=== PATIENT | female | born 2000 | race Caucasian/White ===

== ENCOUNTER 2020-12-28 05:46 | Inpatient (IN) | payer BC ==
[2020-12-28] MEDS ORDERED: AMPICILLIN 2,000 MG in SODIUM CHLORIDE 0.9% 100 ML IVPB ONE (06:00)
[2020-12-28] MEDS ORDERED: METHYLERGONOVINE 0.2 MG/ML 1 ML AMP IM PRN (06:01)
[2020-12-28] MEDS ORDERED: TERBUTALINE 1 MG/ML VIAL SQ PRN (06:01)
[2020-12-28] MEDS ORDERED: OXYTOCIN 10 UNIT/ML 1 ML VIAL IM PRN (06:01)
[2020-12-28] MEDS ORDERED: CARBOPROST TROMETHAMINE 250 MCG/ML 1 ML AMP IM PRN (06:01)
[2020-12-28] MEDS ORDERED: LIDOCAINE 0.5% (PF) 5 MG/ML (50 ML SDV) SQ PRN (06:01)
[2020-12-28] MEDS ORDERED: OXYTOCIN 30 UNITS/500 ML NS 30 UNIT in SALINE 1 500ML.BAG IV SCH (06:15)
[2020-12-28 06:17] LABS: Basophils # (A) 0.1 k/uL (0-0.2); Basophils % (A) 1 %; Eosinophils # (A) 0.2 k/uL (0-0.7); Eosinophils % (A) 1 %; HCT 37.2 % (34.0-46.0); HGB 12.2 gm/dL (11.4-16.0); Lymphocytes # (A) 2.4 k/uL (1.0-4.8); Lymphocytes % (A) 22 %; MCH 27.2 pg (25.0-35.0); MCHC 32.8 g/dL (31.0-37.0); MCV 82.8 fL (80.0-100.0); Mean Platelet Volume 10.5; Monocytes # (A) 0.6 k/uL (0-1.0); Monocytes % (A) 6 %; Neutrophils # (A) 7.5 k/uL (1.3-7.7); Neutrophils % (A) 68 %; Platelet Count 238 k/uL (150-450); Poikilocytosis Slight; RBC 4.49 m/uL (3.80-5.40); RDW 14.3 % (11.5-15.5)
[2020-12-28] MEDS: LACTATED RINGERS 1,000 ML IV SCH ×3 (06:19→21:46)
--- NOTE | 2020-12-28 08:17 | P.HPOB ---
History of Present Illness H&P Date: 12/28/20 Chief Complaint: Induction of labor This is a 20-year-old female 2 para 0 with an estimated date of confinement of 12/31/2020, estimated gestational age of 39-4/7 weeks, who presents to labor and delivery for induction of labor. She has been feeling frequent contractions and pressure. course was essentially uncomplicated. labs: Hepatitis B surface antigen-negative RPR-nonreactive Rubella-nonimmune Blood type-A+ Antibody screen-negative Hemoglobin-13.3 Random glucose-82 Group B streptococcus-positive One hour Glucola-125 Obstetrical history: . History of 1 miscarriage. Gynecologic history: No history of sexual transmitted diseases. Social history: She is single. She works at [employer] in [employer] Review of Systems Constitutional: Denies chills, Denies fever Eyes: denies blurred vision, denies pain Ears, nose, mouth and throat: Denies headache, Denies sore throat Cardiovascular: Denies chest pain, Denies shortness of breath Respiratory: Denies cough Gastrointestinal: Reports abdominal pain (Contractions) Genitourinary: Reports pelvic pain, Reports Musculoskeletal: Reports low back pain Integumentary: Denies pruritus, Denies rash Neurological: Denies numbness, Denies weakness Psychiatric: Denies anxiety, Denies depression Past Medical History Past Medical History: No Reported History History of Any Multi-Drug Resistant Organisms: None Reported Past Surgical History: No Surgical Hx Reported Past Anesthesia/Blood Transfusion Reactions: No Reported Reaction Past Psychological History: No Psychological Hx Reported Smoking Status: Never smoker Past Alcohol Use History: None Reported Past Drug Use History: None Reported - Past Family History Mother Family Medical History: No Reported History Medications and Allergies Home Medications Medication Instructions Recorded Confirmed Type Pnv,Calcium 72/Iron/Folic Acid 1 tab PO DAILY 12/28/20 12/28/20 History [ Plus Tablet] Allergies Allergy/AdvReac Type Severity Reaction Status Date / Time No Known Allergies Allergy Verified 12/28/20 06:00 Exam Osteopathic Statement: *. No significant issues noted on an osteopathic structural exam other than those noted in the History and Physical/Consult. Vital Signs Temp Pulse Resp BP Pulse Ox 12/28/20 08:03 97.3 F L 106 H 18 133/89 98 Intake and Output 12/27/20 12/28/20 12/28/20 22:59 06:59 14:59 Other: # Voids 1 Weight 82.1 kg 82.1 kg HEENT: Within normal limits Heart: Regular rate and rhythm Lungs: Clear to auscultation bilaterally Abdomen: Cervix: 2 cm/70%/-2 station heart tones: Reactive, category 1 Contractions: Irregular Extremities: Negative Homans Results Result Diagrams: 12/28/20 06:05 Abnormal Lab Results - Last 24 Hours (Table) 12/28/20 Range/Units 06:05 WBC 11.0 H (3.8-10.6) k/uL Assessment and Plan (1) 39 weeks gestation of Current Visit: Yes Status: Acute Code(s): Z3A.39 - 39 WEEKS GESTATION OF SNOMED Code(s): 85083820 (2) Group B Streptococcus carrier, +RV culture, currently Current Visit: Yes Status: Acute Code(s): O99.820 - STREPTOCOCCUS B CARRIER STATE COMPLICATING SNOMED Code(s): 7069551905881 Plan: Admission for induction of labor. Antibiotic prophylaxis for group B streptococcus. Expectant management.
[2020-12-28 09:25] LABS: ALT 9 U/L (4-34); AST 24 U/L (14-36); African American GFR (CKD) >90 (>60 ml/min/1.73 sqM); Blood Urea Nitrogen 8 mg/dL (7-17); LDH 463 U/L (313-618); Non-African American GFR(CKD) >90 (>60 ml/min/1.73 sqM); Uric Acid 5.4 mg/dL (3.7-7.4)
[2020-12-28 09:30] LABS: Appearance,Urine Clear (Clear); Bilirubin,Urine Negative (Negative); Blood,Urine Negative (Negative); Color,Urine Light Yellow; Glucose,Urine (UA) Negative (Negative); Ketones,Urine Negative (Negative); Leukocyte Esterase,Urine Negative (Negative); Nitrite,Urine Negative (Negative); PH, Urine 6.5 (5.0-8.0); Protein,Urine Negative (Negative); Specific Gravity,Urine 1.008 (1.001-1.035); Urobilinogen,Urine <2.0 mg/dL (<2.0)
[2020-12-28 09:39] LABS: Creatinine,Urine Random 40.6 mg/dL; Protein/Creatinine Ratio,Urine 0.222
[2020-12-28] MEDS: AMPICILLIN 1,000 MG in SODIUM CHLORIDE 0.9% 50 ML IVPB SCH ×4 (10:45→22:48)
[2020-12-28] MEDS: BUTORPHANOL 1 MG/ML 1 ML VIAL IV PRN ×2 (18:10→20:36)
--- NOTE | 2020-12-29 00:42 | P.PROBDLV ---
Vaginal Delivery Note - . Vaginal Delivery Note: The patient progressed to complete dilation after oxytocin induction of labor and artificial rupture membranes with clear fluid noted. She did receive multiple doses of ampicillin during labor due to positive group B streptococcus. She also did receive 2 doses of Stadol while in labor. Once reaching complete, she began pushing. 's head came to a crown. At this time heart tones were noted to be in the 50s and therefore a midline episiotomy was cut. With o ne further push, the 's head delivered across the perineum followed by the anterior shoulder. Nose and mouth were bulb suctioned at the perineum. Nuchal cord times one was reduced around the body with one remaining push and the remainder the infant easily delivered reducing the cord around the . A viable female infant was then placed on mother's abdomen and cord was clamped and cut. Infant was taken to warmer for evaluation. A viable female is noted with scores of 9 at 1 minute and 9 at 5 minutes and weight of 7 lbs. 11 oz. Placenta delivered shortly thereafter, intact, with a three- vessel cord. Uterus contracted fairly well after oxytocin was given and uterine massage was carried out. Inspection of the perineum revealed a midline episiotomy and a left periurethral laceration. These areas were anesthetized with 1% lidocaine. The left periurethral laceration is closed with 3-0 Vicryl suture in a running locked fashion. The midline episiotomy is then sutured with 30 and 2-0 Vicryl suture in the usual multilayer fashion. Several clots and one small piece of membranous tissue was removed from the endometrial cavity with a gloved hand. Uterus did contract well after this. Estimated blood loss is approximately 300 mL's. Both mother and are in stable condition.
[2020-12-29] MEDS ORDERED: diphenhydrAMINE 50 MG/ML 1 ML VIAL IVP PRN ×2 (01:26)
[2020-12-29] MEDS ORDERED: ZOLPIDEM 5 MG TAB PO PRN (01:26)
[2020-12-29] MEDS ORDERED: LANOLIN CREAM 5 GM TUBE TOPICAL PRN (01:26)
[2020-12-29] MEDS ORDERED: HYDROCORTISONE 2.5% RECTAL CREAM 30 GM TUBE RECTAL PRN (01:26)
[2020-12-29] MEDS ORDERED: ACETAMINOPHEN TAB 325 MG TAB PO PRN (01:26)
[2020-12-29] MEDS ORDERED: OXYTOCIN 30 UNITS/500 ML NS 30 UNIT in SALINE 1 500ML.BAG IV SCH (01:26)
[2020-12-29] MEDS ORDERED: BENZOCAINE/MENTHOL SPRAY 1 GM/SPRAY AEROSOL TOPICAL PRN (01:26)
[2020-12-29] MEDS ORDERED: diphenhydrAMINE 50 MG CAP PO PRN (01:26)
[2020-12-29] MEDS ORDERED: MEASLES-MUMPS-RUBELLA VACC/PF 12,500 UNIT/0.5 ML VIAL SQ ONE (01:26)
[2020-12-29] MEDS ORDERED: SIMETHICONE 80 MG CHEWABLE PO PRN (01:26)
[2020-12-29] MEDS ORDERED: diphenhydrAMINE 25 MG CAP PO PRN (01:26)
[2020-12-29] MEDS: IBUPROFEN 600 MG TAB PO PRN ×3 (01:44→16:36)
[2020-12-29] MEDS: SENNOSIDES-DOCUSATE SODIUM 1 EACH TAB PO SCH ×3 (01:50→19:52)
[2020-12-29] MEDS: PRENATAL VIT-IRON-FOLIC ACID 1 EACH CAP PO SCH ×2 (01:50→08:44)
[2020-12-29 06:52] LABS: Basophils % (A) 0 %; Eosinophils % (A) 0 %; HCT 29.9 % (34.0-46.0); HGB 10.3 gm/dL (11.4-16.0); Lymphocytes # (A) 1.2 k/uL (1.0-4.8); Lymphocytes % (A) 7 %; MCH 27.5 pg (25.0-35.0); MCHC 34.5 g/dL (31.0-37.0); MCV 79.7 fL (80.0-100.0); Mean Platelet Volume 11.5; Monocytes % (A) 5 %; Neutrophils % (A) 87 %; Platelet Count 250 k/uL (150-450); Poikilocytosis Moderate; RBC 3.76 m/uL (3.80-5.40); RDW 14.7 % (11.5-15.5); WBC 18.4 k/uL (3.8-10.6)
[2020-12-29 10:01] LABS: Large Platelets Present
[2020-12-29 16:49] VITALS: RESP 16
[2020-12-30] MEDS: IBUPROFEN 600 MG TAB PO PRN (08:37)
[2020-12-30] MEDS: SENNOSIDES-DOCUSATE SODIUM 1 EACH TAB PO SCH (08:38)
[2020-12-30 08:43] VITALS: BP 124/79; PULSE 114; TEMP 98.4
--- NOTE | 2020-12-30 10:19 | P.DS ---
Providers Date of admission: 12/28/20 05:46 Expected date of discharge: 12/30/20 Attending physician: Yun Gomez Primary care physician: Stated None - Discharge Diagnosis(es) (1) 39 weeks gestation of Current Visit: Yes Status: Acute (2) Group B Streptococcus carrier, +RV culture, currently Current Visit: Yes Status: Acute Hospital Course: This is a 20 y.o. female who presented for induction of labor at 39-4/7 weeks. She delivered vaginally a viable female infant with scores of 9 at 1 minute and 9 at 5 minutes on 12/29/2020. course has been essentially uncomplicated. She does have some soreness around her stitches. Bleeding is slowing. Pain is fairly well controlled. Vital signs are stable. Abdomen is soft, non-tender with fundus firm and non-tender. Extremities show negative Jacqueline's. Perineal area is intact. Impression is status post vaginal delivery day #1. Plan is to discharge home today. Follow up in office in 6 weeks. Will give prescription for ibuprofen. Bottle feeding. Instructions given. Advised to call the office with any questions or concerns prior to her appointment time. Procedures: Oxytocin induction of labor Spontaneous vaginal delivery of viable female infant on 12/29/2020 Patient Condition at Discharge: Stable Plan - Discharge Summary New Discharge Prescriptions: New Ibuprofen [Motrin] 600 mg PO Q6HR PRN #60 tab PRN Reason: Mild Pain (Scale 1 To 3) Continue Pnv,Calcium 72/Iron/Folic Acid [ Plus Tablet] 1 tab PO DAILY Discharge Medication List Pnv,Calcium 72/Iron/Folic Acid [ Plus Tablet] 1 tab PO DAILY 12/28/20 [History] Ibuprofen [Motrin] 600 mg PO Q6HR PRN #60 tab 12/30/20 [Rx] Follow up Appointment(s)/Referral(s): Yun Gomez DO [Doctor of Osteopathic Medicine] - 6 Weeks Activity/Diet/Wound Care/Special Instructions: Activity as tolerated. Diet as tolerated. May shower but no tub baths for 3 weeks. No intercourse for 6 weeks. Discharge Disposition: HOME SELF-CARE
== END 2020-12-30 15:35 | disposition home or self-care (01) | DRG 807 ==
LOC: 4FBP 05:46
PROVIDERS: ADMIT Obstetrics & Gynecology; ATTEND Obstetrics & Gynecology
PROC: 3E033VJ Introduction of Other Hormone into Peripheral Vein, Percutaneous Approach (ICD-10-PCS; 2020-12-28)
PROC: 10907ZC Drainage of Amniotic Fluid, Therapeutic from Products of Conception, Via Natural or Artificial Opening (ICD-10-PCS; 2020-12-28)
PROC: 0W8NXZZ Division of Female Perineum, External Approach (ICD-10-PCS; principal; 2020-12-29)
PROC: 0UQMXZZ Repair Vulva, External Approach (ICD-10-PCS; principal; 2020-12-29)
PROC: 3E0234Z Introduction of Serum, Toxoid and Vaccine into Muscle, Percutaneous Approach (ICD-10-PCS; principal; 2020-12-29)
PROC: 10E0XZZ Delivery of Products of Conception, External Approach (ICD-10-PCS; principal; 2020-12-29)
DX: O99.824 Streptococcus B carrier state complicating childbirth (principal); Z37.0 Single live birth; O71.82 Other specified trauma to perineum and vulva; O69.81X0 Labor and delivery complicated by cord around neck, without compression, not applicable or unspecified; Z3A.39 39 weeks gestation of pregnancy; Z23 Encounter for immunization
CPT/HCPCS: 81003; 82565; 82570; 83615; 84156; 84450; 84460; 84520; 84550; 85025; 86850; 86900; 86901; 90707

== ENCOUNTER 2021-03-02 02:07 | Emergency (ER) | payer BC ==
[2021-03-02 02:14] VITALS: TEMP 97.3
[2021-03-02] MEDS ORDERED: ONDANSETRON 4 MG/2 ML VIAL IVP STA (03:00)
[2021-03-02] MEDS ORDERED: FAMOTIDINE 20 MG/2 ML VIAL IV STA (03:00)
[2021-03-02] MEDS ORDERED: SODIUM CHLORIDE 0.9% 1,000 ML IV STA ×2 (03:00→04:51)
--- NOTE | 2021-03-02 03:03 | ED ---
General Adult HPI - General Chief complaint: Nausea/Vomiting/Diarrhea Stated complaint: Nausea,vomiting Time Seen by Provider: 03/02/21 02:20 Source: patient, RN notes reviewed Mode of arrival: ambulatory Limitations: no limitations - History of Present Illness Initial comments: Patient is a pleasant 20-year-old female presenting to the emergency department nausea vomiting. Onset of symptoms around 6 PM. Patient has vomited 4 times. Patient still has some nausea. No significant abdominal discomfort. No headache. Patient feels lightheaded. No visual changes. No shortness of breath. No history of chronic problems similar to this. Patient is over 8 weeks . - Related Data Home Medications Medication Instructions Recorded Confirmed Pnv,Calcium 72/Iron/Folic Acid 1 tab PO DAILY 12/28/20 12/28/20 [ Plus Tablet] Previous Rx's Medication Instructions Recorded Ibuprofen [Motrin] 600 mg PO Q6HR PRN #60 tab 12/30/20 Allergies Allergy/AdvReac Type Severity Reaction Status Date / Time No Known Allergies Allergy Verified 12/28/20 06:00 Review of Systems ROS Statement: Those systems with pertinent positive or pertinent negative responses have been documented in the HPI. ROS Other: All systems not noted in ROS Statement are negative. Constitutional: Denies: fever Eyes: Denies: eye pain ENT: Denies: ear pain Respiratory: Denies: cough Cardiovascular: Denies: chest pain Endocrine: Denies: fatigue Gastrointestinal: Reports: nausea, vomiting. Denies: abdominal pain, diarrhea Genitourinary: Denies: dysuria Musculoskeletal: Denies: back pain Skin: Denies: rash Neurological: Denies: headache, weakness Past Medical History Past Medical History: No Reported History, Hypertension History of Any Multi-Drug Resistant Organisms: None Reported Past Surgical History: No Surgical Hx Reported Past Anesthesia/Blood Transfusion Reactions: No Reported Reaction Past Psychological History: Depression Smoking Status: Never smoker Past Alcohol Use History: None Reported Past Drug Use History: None Reported - Past Family History Mother Family Medical History: No Reported History General Exam Limitations: no limitations General appearance: alert, in no apparent distress Head exam: Present: normocephalic Eye exam: Present: normal appearance Neck exam: Present: normal inspection Respiratory exam: Present: normal lung sounds bilaterally Cardiovascular Exam: Present: tachycardia GI/Abdominal exam: Present: soft, normal bowel sounds. Absent: distended, tenderness, guarding, rebound, rigid, pulsatile mass Extremities exam: Present: normal inspection. Absent: pedal edema, calf tenderness Neurological exam: Present: alert Psychiatric exam: Present: normal affect, normal mood Skin exam: Present: normal color Course Vital Signs 03/02/21 03/02/21 03/02/21 02:08 04:09 05:58 Temperature 97.3 F L Pulse Rate 122 H 101 H 101 H Respiratory 18 16 16 Rate Blood Pressure 166/98 144/97 139/94 O2 Sat by Pulse 96 98 97 Oximetry 03/02/21 06:34 Temperature Pulse Rate 104 H Respiratory 18 Rate Blood Pressure 141/94 O2 Sat by Pulse 97 Oximetry Medical Decision Making - Medical Decision Making Patient reevaluated and resting comfortably in bed. Patient is tolerating oral intake. Case was discussed with Dr. Ventura who does not have concern for preeclampsia. He does recommend patient call the office for potential follow-up with Dr. Gomez. He will discuss this with her morning. Patient is advised to also follow-up with primary care physician. - Lab Data Result diagrams: 03/02/21 03:57 03/02/21 03:57 Lab Results 03/02/21 03/02/21 03/02/21 Range/Units 03:57 03:57 05:57 WBC 7.9 (3.8-10.6) k/uL RBC 5.42 H (3.80-5.40) m/uL Hgb 14.6 D (11.4-16.0) gm/dL Hct 45.5 (34.0-46.0) % MCV 84.0 (80.0-100.0) fL MCH 27.0 (25.0-35.0) pg MCHC 32.1 (31.0-37.0) g/dL RDW 15.3 (11.5-15.5) % Plt Count 252 (150-450) k/uL MPV 11.0 Neutrophils % 89 % Lymphocytes % 4 % Monocytes % 5 % Eosinophils % 1 % Basophils % 0 % Neutrophils # 7.1 (1.3-7.7) k/uL Lymphocytes # 0.4 L (1.0-4.8) k/uL Monocytes # 0.4 (0-1.0) k/uL Eosinophils # 0.1 (0-0.7) k/uL Basophils # 0.0 (0-0.2) k/uL Sodium 138 (137-145) mmol/L Potassium 5.0 (3.5-5.1) mmol/L Chloride 105 (98-107) mmol/L Carbon Dioxide 17 L (22-30) mmol/L Anion Gap 16 mmol/L BUN 16 (7-17) mg/dL Creatinine 0.70 (0.52-1.04) mg/dL Est GFR (CKD-EPI)AfAm >90 (>60 ml/min/1.73 sqM) Est GFR (CKD-EPI)NonAf >90 (>60 ml/min/1.73 sqM) Glucose 122 H (74-99) mg/dL Uric Acid 6.1 (3.7-7.4) mg/dL Calcium 9.8 (8.4-10.2) mg/dL Total Bilirubin 0.6 (0.2-1.3) mg/dL AST 33 (14-36) U/L ALT 15 (4-34) U/L Alkaline Phosphatase 85 (38-126) U/L Lactate Dehydrogenase 669 H (313-618) U/L Total Protein 8.3 H (6.3-8.2) g/dL Albumin 4.7 (3.5-5.0) g/dL Amylase 76 (30-110) U/L Lipase 61 (23-300) U/L Urine Color Yellow Urine Appearance Clear (Clear) Urine pH 5.5 (5.0-8.0) Ur Specific Mason 1.034 (1.001-1.035) Urine Protein 1+ H (Negative) Urine Glucose (UA) Negative (Negative) Urine Ketones Trace H (Negative) Urine Blood Negative (Negative) Urine Nitrite Negative (Negative) Urine Bilirubin Negative (Negative) Urine Urobilinogen 2.0 (<2.0) mg/dL Ur Leukocyte Esterase Moderate H (Negative) Urine RBC 1 (0-5) /hpf Urine WBC 18 H (0-5) /hpf Ur Squamous Epith Cells 5 H (0-4) /hpf Urine Bacteria Rare H (None) /hpf Urine Mucus Moderate H (None) /hpf Disposition Clinical Impression: Vomiting Disposition: HOME SELF-CARE Condition: Stable Instructions (If sedation given, give patient instructions): Acute Nausea and Vomiting (ED) Additional Instructions: Please call Dr. Gomez office today for follow-up. Please also follow-up with primary care physician in the next day or 2 for recheck. You will need to have blood pressure rechecked. Additional numbers have been provided. Return for uncontrolled blood pressure, persistent vomiting, not tolerating fluids, fever, headache, visual changes, abdominal pain, worsening symptoms or other concerns. Is patient prescribed a controlled substance at d/c from ED?: No Referrals: Kitty Moore CRNP [Primary Care Provider] - 1-2 days Adrianne Glasgow MD [STAFF PHYSICIAN] - 1-2 days Azael Forrest DO [STAFF PHYSICIAN] - 1-2 days Yun Gomez DO [Doctor of Osteopathic Medicine] - 1-2 days Time of Disposition: 06:48
[2021-03-02 04:27] LABS: Basophils % (A) 0 %; Eosinophils # (A) 0.1 k/uL (0-0.7); Eosinophils % (A) 1 %; HCT 45.5 % (34.0-46.0); Lymphocytes # (A) 0.4 k/uL (1.0-4.8); Lymphocytes % (A) 4 %; MCHC 32.1 g/dL (31.0-37.0); Monocytes # (A) 0.4 k/uL (0-1.0); Monocytes % (A) 5 %; Neutrophils # (A) 7.1 k/uL (1.3-7.7); Neutrophils % (A) 89 %; Platelet Count 252 k/uL (150-450); RBC 5.42 m/uL (3.80-5.40); RDW 15.3 % (11.5-15.5); WBC 7.9 k/uL (3.8-10.6)
[2021-03-02 04:28] LABS: HGB 14.6 gm/dL (11.4-16.0)
[2021-03-02 04:36] LABS: ALT 15 U/L (4-34); AST 33 U/L (14-36); African American GFR (CKD) >90 (>60 ml/min/1.73 sqM); Albumin 4.7 g/dL (3.5-5.0); Alkaline Phosphatase 85 U/L (38-126); Amylase 76 U/L (30-110); Anion Gap 16 mmol/L; Blood Urea Nitrogen 16 mg/dL (7-17); Calcium 9.8 mg/dL (8.4-10.2); Carbon Dioxide 17 mmol/L (22-30); Chloride 105 mmol/L (98-107); Glucose 122 mg/dL (74-99); LDH 669 U/L (313-618); Lipase 61 U/L (23-300); Non-African American GFR(CKD) >90 (>60 ml/min/1.73 sqM); Sodium 138 mmol/L (137-145); Total Bilirubin 0.6 mg/dL (0.2-1.3); Total Protein 8.3 g/dL (6.3-8.2); Uric Acid 6.1 mg/dL (3.7-7.4)
[2021-03-02] MEDS ORDERED: hydrALAZINE HCL 25 MG TAB PO STA (06:05)
[2021-03-02 06:30] LABS: Appearance,Urine Clear (Clear); Bacteria,Urine Rare /hpf; Bilirubin,Urine Negative (Negative); Blood,Urine Negative (Negative); Color,Urine Yellow; Glucose,Urine (UA) Negative (Negative); Ketones,Urine Trace (Negative); Leukocyte Esterase,Urine Moderate (Negative); Mucus,Urine Moderate /hpf; Nitrite,Urine Negative (Negative); PH, Urine 5.5 (5.0-8.0); Protein,Urine 1+ (Negative); RBC,Urine 1 /hpf (0-5); Specific Gravity,Urine 1.034 (1.001-1.035); Squamous Epithelial Cell,Urine 5 /hpf (0-4); WBC,Urine 18 /hpf (0-5)
[2021-03-02] MEDS ORDERED: ONDANSETRON 4 MG ODT STARTER PACK 2 TAB BTL PO STA (06:48)
[2021-03-02 07:40] VITALS: BP 133/96; PULSE 111; RESP 16
== END 2021-03-02 07:34 | disposition home or self-care (01) ==
LOC: EC 02:07
DX: R11.2 Nausea with vomiting, unspecified (principal); I10 Essential (primary) hypertension
CPT/HCPCS: 36415; 80053; 82150; 83615; 83690; 84550; 85025; 81001; 87086; 99284; 96374; 96375; 96361; J2405; S0119

== ENCOUNTER 2021-10-13 07:57 | Emergency (ER) | payer OTHER, BC ==
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
--- NOTE | 2021-10-13 08:41 | XR ---
EXAMINATION TYPE: XR chest 2V DATE OF EXAM: 10/13/2021 COMPARISON: NONE TECHNIQUE: PA and lateral views submitted. HISTORY: Chest pain FINDINGS: The lungs are clear and there is no pneumothorax, pleural effusion, or focal pneumonia. Heart size normal. No overt failure. On lateral view there may be slight increased density retrosternal location . IMPRESSION: 1. Question increased density along the retrosternal region on the lateral view. Recommend CT chest..
[2021-10-13] MEDS ORDERED: RX INFO: IV CONTRAST WAS GIVEN 1 EACH MISC MISCELLANE PRN (08:58)
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
[2021-10-13 10:23] VITALS: BP 143/97; PULSE 82; RESP 18; TEMP 98.4
== END 2021-10-13 10:23 | disposition home or self-care (01) ==
LOC: EC 07:57
DX: S20.212A Contusion of left front wall of thorax, initial encounter (principal); S80.01XA Contusion of right knee, initial encounter; V89.2XXA Person injured in unspecified motor-vehicle accident, traffic, initial encounter
CPT/HCPCS: 73562; 71046; 71260; 99284; Q9967